=== PATIENT | male | born 1970 | race Caucasian/White ===

== ENCOUNTER 2019-02-27 08:49 | Day surgery (SDC) | payer MEDICAID ==
[2019-02-19 11:04] LABS: BASOPHILS % (AUTO) 0.6 % (0-1); EOSINOPHILS # (AUTO) 0.1 X10'3 (0-0.9); EOSINOPHILS % (AUTO) 1.2 % (0-6); LYMPHOCYTES # (AUTO) 1.8 X10'3 (1.1-4.8); LYMPHOCYTES % (AUTO) 27.6 % (21-51); MEAN CORPUSCULAR HGB CONC 34.7 g/dL (33.0-36.5); MEAN CORPUSCULAR VOLUME 89.4 FL (78-98); MEAN PLATELET VOLUME 9.3 FL (7.4-10.4); MONOCYTES # (AUTO) 0.6 X10'3 (0-0.9); MONOCYTES % (AUTO) 9.3 % (2-12); NEUTROPHILS # (AUTO) 4.1 X10'3 (1.8-7.7); NEUTROPHILS % (AUTO) 61.3 % (42-75); PRE OP HEMATOCRIT 47.9 % (42.0-52.0); PRE OP HEMOGLOBIN 16.6 g/dL (14.0-17.9); PRE OP PLATELET COUNT 243 X10'3 (140-440); RED BLOOD COUNT 5.36 X10'6 (4.70-6.10); RED CELL DISTRIBUTION WIDTH 13.4 % (11.5-14.5)
[2019-02-19 11:13] LABS: ALBUMIN 3.8 G/DL (3.4-5.0); ALBUMIN/GLOBULIN RATIO 1.2 (1.1-1.5); ALKALINE PHOSPHATASE 83 IU/L (46-116); BLOOD UREA NITROGEN 18 MG/DL (7-18); BUN/CREATININE RATIO 23.7 (5.4-32.0); CHLORIDE 104 MMOL/L (99-107); CREATININE 0.76 MG/DL (0.60-1.10); PRE OP ALT 22 U/L (30-65); PRE OP ANION GAP 6 (8-16); PRE OP AST 22 U/L (10-37); PRE OP BILIRUB, TOTAL 1.6 MG/DL (0.0-1.0); PRE OP GLUCOSE 86 MG/DL (70-104); PRE OP SODIUM 136 MMOL/L (135-145); TOTAL CARBON DIOXIDE 25.9 MMOL/L (24-32); eGFR > 90 ML/MIN
[~2019-02-27] VITALS: Ht 175.3 cm; Wt 65.8 kg
[2019-02-27] VITALS (10 sets, daily range): BP systolic 98–122; BP diastolic 44–69
[~2019-02-27 08:49] MED LIST: LACT1CAP65 PO; MULT1TAB74 PO; VANCOMYCIN INJ 1000 MG in NORMAL SALINE 250ml IV.SOLN IV ONE; cefazolin/dext.iso 2gm/100 ML IV ONE; famotidine 20mg tablet PO ONE; ringers solution, lacted 1,000 ML IV SCH
[2019-02-27] MEDS ORDERED: ringers solution, lacted 1,000 ML IV SCH (10:35)
[2019-02-27] MEDS ORDERED: morphine 4 MG/ML inj SYRINge IV PRN ×2 (10:35)
[2019-02-27] MEDS ORDERED: meperidine/PF 25mg/ml syringe IV PRN ×2 (10:35)
[2019-02-27] MEDS ORDERED: labetalol 20mg/4ml (5mg/ml) syringe IV PRN (10:35)
[2019-02-27] MEDS ORDERED: ondansetron/PF 4mg/2ml inj IV PRN (10:35)
[2019-02-27] MEDS ORDERED: hydrALAZINE 20mg/ml inj. IV PRN (10:35)
[2019-02-27] MEDS ORDERED: sevoflurane 250ml liquid IH ONE (11:30)
[2019-02-27] MEDS ORDERED: dexamethasone sod phosphate 4mg/ml inj. ONE (11:30)
[2019-02-27] MEDS ORDERED: fentaNYL/PF 50MCG/1 ML 2ML syringe ONE ×2 (11:36→12:22)
[2019-02-27] MEDS ORDERED: midazolam 2 mg/2 ml injection ONE (11:37)
[2019-02-27] MEDS ORDERED: ketorolac trometh. 30mg/ml inj. ONE (11:45)
[2019-02-27] MEDS ORDERED: LIDOcaine 2% (20mg/ml) 5ml vial ONE (11:45)
[2019-02-27] MEDS ORDERED: propofol inj 20 ML IV ONE (11:45)
[2019-02-27] MEDS ORDERED: BUPIVAcaine/PF 2.5 mg/ml (0.25%) 30ml vial ONE (12:35)
== END 2019-02-27 14:00 | disposition home or self-care (01) ==
LOC: PAS 08:49
PROVIDERS: ATTEND Orthopaedic Surgery
DX: S83.242A Other tear of medial meniscus, current injury, left knee, initial encounter (principal); S83.282A Other tear of lateral meniscus, current injury, left knee, initial encounter; M22.42 Chondromalacia patellae, left knee; M17.12 Unilateral primary osteoarthritis, left knee; X58.XXXA Exposure to other specified factors, initial encounter; M19.131 Post-traumatic osteoarthritis, right wrist; F12.90 Cannabis use, unspecified, uncomplicated; Y92.89 Other specified places as the place of occurrence of the external cause; Y93.89 Activity, other specified; Y99.8 Other external cause status; Z72.89 Other problems related to lifestyle
CPT/HCPCS: 29873; 29879; 29880; 36415; 80053; 82948; 85025; 93005; J0690; J1100; J1885; J2001; J2250; J2704; J3010; J3370; J3490; A6250; A6449; A7000; J7030; J7120